=== PATIENT | male | born 1980 | race Caucasian/White ===

== ENCOUNTER 2020-04-16 01:05 | Emergency (ER) | payer BC, SELFPAY ==
--- NOTE | ~2020-04-16 | XR_ITS ---
EXAMINATION: XR chest 1V EXAM DATE: 04/16/2020 01:44 INDICATION: Unresponsive. TECHNIQUE: Portable AP frontal chest x-ray was obtained. There is no prior study for comparison. FINDINGS: The lungs are clear. There are no pleural effusions. The cardiomediastinal silhouette is within normal limits. There is no pneumothorax suspected. The bones and soft tissues are unremarkab le. IMPRESSION: Unremarkable chest x-ray exam. Reviewed, dictated and finalized at location A. ERY SUPERVISOR
--- NOTE | ~2020-04-16 | CT_ITS ---
EXAMINATION: CT brain wo con EXAM DATE: 04/16/2020 01:37 INDICATION: Unresponsiveness. TECHNIQUE: Spiral CT of the head was performed without contrast. Axial, coronal and sagittal images were reviewed. The dose-length product (DLP) for this examination was 605.33 mGy-cm. The exposure w as tailored according to patient size, and iterative reconstruction (ASIR) was used as additional dos e reduction technique. Comparison is made to prior examination from 04/16/2020. FINDINGS: There is no acute intraparenchymal hemorrhage. No evidence of intraparenchymal brain mass lesion. No evidence of acute infarction. There is no mass effect or midline shift. The ventricles are normal in size. There are no extra-axial collections. There are no acute calvarial fractures. T he orbits are unremarkable. Soft tissue is unremarkable. Mild right maxillary sinus periosteal thic kening in the imaged portion of the sinus. IMPRESSION: 1. Unremarkable head CT examination. Reviewed, dictated and finalized at location A. ENT REGISTRATION SUPERVISOR
[2020-04-16 01:08] VITALS: BP 133/92; PULSE 94; RESP 16; TEMP 36.8; O2SAT 96
--- NOTE | 2020-04-16 01:20 | ECG_ITS ---
Measurements Intervals [place] Rate: 81 P: 74 TX: 151 QRS: 51 QRSD: 85 T: 27 QT: 400 QTc: 466 Interpretive Statements SINUS RHYTHM BASELINE ARTIFACT- I, II, III, AVR, AVL, AVF, V1-V2, V4 NORMAL ECG Electronically Signed On 04-16-2020 7:44:09 COMPUTER PERIPHERAL EQUIPMENT OPERATOR by Colby Stinson D.O.
[2020-04-16] MEDS: SODIUM CHLORIDE 0.9% IV 1,000 ML 999 ML IV CONT (01:45)
--- NOTE | 2020-04-16 01:46 | ED.AMS ---
HPI - Altered Mental Status General Chief Complaint: Altered Mental Status Stated Complaint: ams Source: EMS Mode of arrival: EMS History of Present Illness HPI narrative: THis patient is a 39 year old male who presents via EMS for evaluation of unresponsiveness. EMS states the patient's significant other found the patient passed out in the bathroom. They states she was able to get him up of the floor. On EMS arrival, EMS reports patient was breathing but unresponsive to sternal rub. Once they got him into ambulance to start IV and EKG patient started waking up. His significant other told EMS she thinks he may have taken her narcolepsy medication, Xyrem. He admits to drinking 4 bottles of beer tonight, but he denies taking any medication. He denies headache, dizziness, chest pain, nausea, vomiting or sob. Related Data Allergies Allergy/AdvReac Type Severity Reaction Status Date / Time No Known Allergies Allergy Unverified 10/11/18 08:55 Review of Systems Review of Systems: All systems reviewed & are unremarkable except as noted in HPI and below Constitutional: Constitutional: Denies chills and Denies fever(s) Eyes: Eyes: Denies change in vision Cardiovascular: Cardiovascular: Denies chest pain Respiratory: Respiratory: Denies cough and Denies dyspnea Gastrointestinal: Gastrointestinal: Denies melena and Denies coffee ground emesis Neurologic: Reports weakness Endocrine: Endocrine: Reports fatigue PMFSH Past Medical History Medical History (Updated 04/16/20 @ 06:44 by Ama Chamberlain MD) Anemia Surgical History Surgical History (Updated 04/16/20 @ 06:35 by Ama Chamberlain MD) No significant past surgical history Social History Social History (Updated 04/16/20 @ 01:54 by Ama Chamberlain MD) Smoking status: Never smoker Alcohol intake: current Substance use: never Exam Const: General: alert Orientation/consciousness: patient oriented x3 HENMT: Head: normocephalic and other (right forehead bruising) Ears: TM's normal bilaterally Face and sinus: face symmetric Throat: tonsils normal and uvula midline Eyes: Pupils: Equal, round and reactive pupils present EOM: EOMs intact bilaterally Neck: Neck: normal visual inspection Chest: Chest palpation & inspection: normal inspection of the chest Resp: Effort & Inspection: normal respiratory effort and no retractions Auscultation: clear to auscultation bilaterally Cardio: Rate: regular rate Rhythm: regular rhythm Heart sounds: no murmurs GI: GI Palp: Yes Soft to palpation, No Tenderness to palpation present (GI), No Guarding due to palpation present (GI) and No Rigid due to palpation Neuro: General: patient oriented x3 and moves all extremities Psych: Mental Status: mental status grossly normal Course Reevaluation(s) Reevaluation #1: I have discussed with patient that he has severe anemia. He reports a history of anemia due to bleeding hemorrhoids. He reports he has not had bleeding in 1 week and he denies melena. He states he is taking his iron although his hemoglobin was normal 2 months ago at 14.5 but today it is 7. I recommended to patient that he be admitted since he had a syncopal episode with a significant drop in his blood count. He states he does not want to be admitted and his is at bedside. I discussed risk with family at bedside and he still wants to sign out AMA. Date: 04/16/20 Time: 03:00 Vital Signs Vital signs: Vital Signs Temperature 98.2 F 04/16/20 01:08 Pulse Rate 94 04/16/20 01:08 Respiratory Rate 16 04/16/20 01:08 Blood Pressure 133/92 H 04/16/20 01:08 Pulse Oximetry 96 04/16/20 01:08 Temperature 98.1 F 04/16/20 03:35 Pulse Rate 89 04/16/20 03:35 Respiratory Rate 16 04/16/20 03:35 Blood Pressure 128/89 04/16/20 03:35 Pulse Oximetry 100 04/16/20 03:35 MDM - Altered Mental Status Lab Data Attestation: I reviewed the patient's lab results.
[2020-04-16 01:52] LABS: Glucose Point of Care 123 (65-105)
[2020-04-16 02:18] LABS: INR 0.9; Prothrombin Time 12.8 Seconds (11.1-14.7)
[2020-04-16 02:19] LABS: Partial Thromboplastin Time 22.4 SECONDS (22.3-36.8)
[2020-04-16 02:21] LABS: Alanine Aminotransferase 113 U/L (4-50); Albumin Level 4.1 g/dL (3.5-5.1); Alkaline Phosphatase 73 U/L (38-126); Anion Gap 10 mmol/L (8-16); Aspartate Amino Transferase 151 U/L (17-59); Bilirubin,Total 0.3 mg/dL (0.2-1.3); Blood Urea Nitrogen 7 mg/dL (9-20); Calcium 7.9 mg/dL (8.4-10.2); Carbon Dioxide 31 mmol/L (22-30); Chloride 105 mmol/L (98-107); Estimated CRCL calculation 97 ml/min; Estimated Glomerular Filt Rate > 60; Glucose 125 mg/dL (75-110); Magnesium 2.3 mg/dL (1.6-2.3); Potassium 3.8 mmol/L (3.4-5.0); Sodium 146 mmol/L (137-145)
[2020-04-16 02:28] LABS: Acetaminophen < 10 ug/mL (10-30); Salicylate < 1.0 mg/dL (2-20)
[2020-04-16 02:29] LABS: Basophils Absolute Auto 0.1 K/mm3 (0.0-0.1); Eosinophils Percent Auto 0.2 % (0-4.4); Hematocrit 24.2 % (42.0-52.0); Immature Granulocyte Absolute 0.03 K/mm3 (0.00-0.031); Immature Granulocyte Percent A 0.6 % (0-0.5); Lymphocytes Absolute Auto 0.69 K/mm3 (0.9-3.2); Lymphocytes Percent Auto 14.4 % (18.3-44.2); Mean Corpuscular HGB Conc 28.9 g/dl (32-36); Mean Corpuscular Hemoglobin 23.6 pg (26-34); Mean Corpuscular Volume 81.8 fl (80-100); Mean Platelet Volume 8.7 fl (7.4-10.4); Monocytes Absolute Auto 0.4 K/mm3 (0.1-0.6); Monocytes Percent Auto 8.6 % (2.6-8.5); Neutrophils Absolute Auto 3.6 K/mm3 (1.3-6.7); Neutrophils Percent Auto 75.2 % (45.5-73.1); Platelet Count Result 198 k/mm3 (150-375); Red Blood Count 2.96 M/mm3 (4.6-6.20); Red Cell Distribution Width 17.5 % (11.5-14.5); White Blood Count 4.8 K/mm3 (4.5-10.0)
[2020-04-16 02:32] LABS: Troponin I < 0.012 ng/mL (0.000-0.034)
[2020-04-16 02:45] LABS: Ethanol 372 mg/dL (<10)
[2020-04-16 02:46] LABS: Hypochromasia 2+ (NORMAL); Ovalocytes 1+ (NORMAL); Platelet Estimate Adequate (Adequate)
[2020-04-16 03:03] VITALS: BP 131/89; PULSE 105
[2020-04-16 03:04] VITALS: BP 129/86; PULSE 93
[2020-04-16 03:06] VITALS: BP 127/83; PULSE 109
[2020-04-16 03:14] LABS: Add Urine Microscopic? YES; Appearance Urine Cloudy (Clear); Bilirubin Urine Negative (Negative); Blood Urine Negative (Negative); Color Urine Yellow (Yellow); Glucose Urine UA Negative (Negative); Ketones Urine Negative (Negative); Leukocyte Esterase Ur Negative LEU/UL (Negative); Mucus Urine Rare /lpf; Nitrate Urine Negative (Negative); Protein Urine 2+ mg/dL (Negative); RBC Urine 0-2 /hpf (0-2); Specific Grav Ur 1.012 (1.001-1.035); Urobilinogen Urine Negative mg/dL (<2.0); WBC Urine 0-3 /hpf
[2020-04-16 03:26] LABS: Benzodiazepines Screen Urine Negative (Negative)
[2020-04-16 03:32] LABS: Amphetamine Screen Urine Negative (Negative); Cannabinoid Screen Urine Positive (Negative); Cocaine Screen Urine Negative (Negative); Methadone Screen Urine Negative (Negative); Opiate Screen Urine Negative (Negative); Phencyclidine Screen Urine Negative (Negative)
[2020-04-16 03:35] VITALS: BP 128/89; PULSE 89; RESP 16; TEMP 36.7; O2SAT 100
[2020-04-16 03:48] LABS: Barbiturate Screen Urine Negative (Negative)
== END 2020-04-16 03:37 | disposition left against medical advice (07) ==
LOC: ANHED 02:11
PROVIDERS: Emergency Provider General Practice; PCP Student in an Organized Health Care Education/Training Program
DX: R55 Syncope and collapse (principal); F10.129 Alcohol abuse with intoxication, unspecified; Y90.0 Blood alcohol level of less than 20 mg/100 ml; D64.9 Anemia, unspecified
CPT/HCPCS: 36415; 70450; 71045; 80053; 80307; 81001; 83735; 84484; 85025; 85610; 85730; 93005; 96360; 99284; J7030

== ENCOUNTER 2020-05-07 01:18 | Observation (INO) | payer BC, SELFPAY ==
[2020-05-07] VITALS (8 sets, daily range): BP systolic 127–139; BP diastolic 78–92; PULSE 83–140; RESP 16–22; TEMP 36.1–37.1; O2SAT 96–100; BMI 26.1
--- NOTE | ~2020-05-07 | CT_ITS ---
EXAMINATION: CT abdomen pelvis w con EXAM DATE: 05/07/2020 13:18 INDICATION: Nausea and vomiting. TECHNIQUE: Spiral CT of the abdomen and pelvis was performed following intravenous injection of 100 m L Omnipaque 350. Axial, coronal and sagittal images were reviewed. The dose-length product (DLP) fo r this examination was 546.56 mGy-cm. The exposure was tailored according to patient size (auto mA e xposure control), and iterative reconstruction (ASIR) was used as additional dose reduction technique . There is no prior study for comparison. FINDINGS: There is severe hepatic steatosis. There is a hemangioma in the right liver lobe at the dom e measuring 3 cm. Portal vein measures 16 mm, mildly dilated, but spleen is normal in size. Gallblad zheng is unremarkable. No biliary obstruction. Portal and splenic veins are patent. Kidneys enhance symmetrically. There is no hydronephrosis. The prostate is unremarkable. Small left inguinal fat-c ontaining hernia. The bladder is unremarkable. There is no retroperitoneal or pelvic lymphadenopath y. The appendix is normal. The stomach and small bowel are unremarkable. There is expected amount of c olonic stool. No free intraperitoneal gas. The heart is normal in size. There are no pericardial or pleural effusions. The lung bases are unremarkable. There are no significant osseous abnormalit ies identified. IMPRESSION: 1. Hepatic steatosis. Possible portal hypertension. 2. Hemangioma. 3. No acute findings. Reviewed, dictated and finalized at location A. WARE APPLICATIONS SPECIALIST
--- NOTE | ~2020-05-07 | US_ITS ---
EXAMINATION: US right upper quadrant DATE: 05/08/2020 13:46 INDICATION: Hepatic steatosis. TECHNIQUE: Multiple grayscale and Doppler ultrasound images of the abdomen were obtained. COMPARISON: CT abdomen and pelvis 05/07/2020 FINDINGS: The visualized portions of the head, body, and tail of the pancreas are normal. There is di ffuse hepatic steatosis. No liver surface nodularity. There is a 4.1 cm hypoechoic mass in right hepa tic lobe with interrupted peripheral puddling of contrast on the prior CT, consistent with a hemangio ma. There is normal flow in main portal vein. The gallbladder is normal in size. No gallstones or gal lbladder wall thickening. There is no sonographic Blanchard sign. The common duct is normal and measures 3 mm. IMPRESSION: 1. Diffuse hepatic steatosis. 2. 4.1 cm hemangioma in the liver. Reviewed, dictated and finalized at location A. ISHER APPRENTICE
--- NOTE | 2020-05-07 01:24 | ED.GENADULT ---
HPI - General Adult General Chief complaint: Chest Pain <NEAL Balderrama Last Filed: 07/31/20 12:18> Stated complaint: nausea and vomiting <NEAL Balderrama Last Filed: 07/31/20 12:18> Time Seen by Provider: 05/07/20 01:23 <NEAL Balderrama Last Filed: 07/31/20 12:18> Source: patient and family () <Leslie Lakhani PA-C - Last Filed: 07/31/20 12:18> Mode of arrival: ambulatory <NEAL Balderrama Last Filed: 07/31/20 12:18> Limitations: no limitations <NEAL Balderrama Last Filed: 07/31/20 12:18> History of Present Illness HPI narrative: 39-year-old male here for persistent vomiting of non-bilious emesis. Patient states that came on suddenly this morning he has not been able to keep anything down since. There is no one in the home sick. He denies any fever, he is shaking on exam and states that he does feel cold and hot. When questioned about tobacco and alcohol he states that he is a daily alcohol drinker, beer and cider but is trying to cut back. He does not feel that this is related to alcohol withdrawal. He was seen here several weeks ago and diagnosed with anemia, he tells me that that is chronic and he and his state that he is seeing a physician and receiving iron infusions. <NEAL Balderrama Last Filed: 07/31/20 12:18> Onset (ago): hour(s) <NEAL Balderrama Last Filed: 07/31/20 12:18> Related Data Home medications: Home Medications Medication Instructions Recorded Confirmed baclofen 10 mg PO PRN 05/07/20 05/07/20 folic acid 1 mg PO DAILY 05/07/20 05/07/20 sertraline [Zoloft] 25 mg PO DAILY 05/07/20 05/07/20 <NEAL Balderrama Last Filed: 07/31/20 12:18> Allergies/adverse reactions: Allergies Allergy/AdvReac Type Severity Reaction Status Date / Time No Known Allergies Allergy Verified 05/07/20 05:15 <Leslie Lakhani PA-C - Last Filed: 07/31/20 12:18> Review of Systems Review of Systems: All systems reviewed & are unremarkable except as noted in HPI and below <Leslie Lakhani PA-C - Last Filed: 07/31/20 12:18> [facility] Past Medical History Medical History: Medical History (Updated 05/20/20 @ 09:28 by Giovanna José PA-C) Alcohol dependence Anemia Anxiety Back muscle spasm Hemorrhoids <Leslie Lakhani PA-C - Last Filed: 07/31/20 12:18> Surgical History Surgical History: Surgical History No significant past surgical history <Leslie Lakhani PA-C - Last Filed: 07/31/20 12:18> Family History Family History: Family History Mother Renal cancer Father High blood cholesterol Mother High blood cholesterol Sibling High blood cholesterol Father Heart attack <Leslie Lakhani PA-C - Last Filed: 07/31/20 12:18> Social History Social History: Social History (Updated 05/07/20 @ 12:43 by Giovanna José PA-C) Social History: Mr. Rogers is a 39 y.o. male. He has two children and one stepson. He lives at home with his . He works for [employer]. He reports that he is currently drinking 4 beers (ciders) per day. He notes occasional marijuana and CBD use. Smoking status: Never smoker Alcohol intake: current Drinks per week: 35 Substance use: current Substance use type: marijuana Last use: marijuana 05/04/2020, alcohol 05/06/2020 Gender identity (if verbalized by the patient): Male Spiritual care concerns: No <Leslie Lakhani PA-C - Last Filed: 07/31/20 12:18> Exam Const: General: alert and ill appearing <Leslie Lakhani PA-C - Last Filed: 07/31/20 12:18> Orientation/consciousness: patient oriented x3 <Leslie Lakhani PA-C - Last Filed: 07/31/20 12:18> HENMT: Head: normal to inspection <Leslie Lakhani PA-C - Last Filed: 07/31/20 12:18> Eyes: Sclera: scleral abnormality (injection) <
--- NOTE | 2020-05-07 01:25 | ECG_ITS ---
Measurements Intervals [place] Rate: 116 P: 62 [place]: 152 QRS: 58 QRSD: 81 T: 45 QT: 316 QTc: 441 Interpretive Statements SINUS TACHYCARDIA POSSIBLE LEFT ATRIAL ENLARGEMENT BASELINE ARTIFACT- I, II, III, AVR, AVL ABNORMAL ECG Electronically Signed On 05-07-2020 10:31:15 WORKING FOREMAN by Colby Stinson D.O.
[2020-05-07] MEDS: SODIUM CHLORIDE 0.9% IV 1,000 ML 999 ML IV CONT (01:49)
[2020-05-07] MEDS: ONDANSETRON INJ 4 MG/2 ML VIAL IV PUSH (01:50)
[2020-05-07 02:10] LABS: Basophils Absolute Auto 0.1 K/mm3 (0.0-0.1); Basophils Percent Auto 1.9 % (0.2-1.2); Eosinophils Absolute Auto 0.6 K/mm3 (0-0.3); Eosinophils Percent Auto 12.3 % (0-4.4); Hematocrit 36.8 % (42.0-52.0); Hemoglobin 10.9 g/dL (14.0-18.0); Immature Granulocyte Absolute 0.02 K/mm3 (0.00-0.031); Immature Granulocyte Percent A 0.4 % (0-0.5); Lymphocytes Absolute Auto 0.52 K/mm3 (0.9-3.2); Lymphocytes Percent Auto 11.2 % (18.3-44.2); Mean Corpuscular HGB Conc 29.6 g/dl (32-36); Mean Corpuscular Hemoglobin 24.7 pg (26-34); Mean Corpuscular Volume 83.3 fl (80-100); Mean Platelet Volume 9.5 fl (7.4-10.4); Monocytes Absolute Auto 0.3 K/mm3 (0.1-0.6); Monocytes Percent Auto 6.9 % (2.6-8.5); Neutrophils Absolute Auto 3.1 K/mm3 (1.3-6.7); Neutrophils Percent Auto 67.3 % (45.5-73.1); Platelet Count Result 436 k/mm3 (150-375); Red Blood Count 4.42 M/mm3 (4.6-6.20); Red Cell Distribution Width 22.6 % (11.5-14.5); White Blood Count 4.6 K/mm3 (4.5-10.0)
[2020-05-07 02:11] LABS: Alanine Aminotransferase 157 U/L (4-50); Alkaline Phosphatase 128 U/L (38-126); Anion Gap 20 mmol/L (8-16); Aspartate Amino Transferase 317 U/L (17-59); Bilirubin,Total 1.2 mg/dL (0.2-1.3); Blood Urea Nitrogen 7 mg/dL (9-20); Calcium 10.4 mg/dL (8.4-10.2); Carbon Dioxide 22 mmol/L (22-30); Chloride 96 mmol/L (98-107); Estimated Glomerular Filt Rate > 60; Glucose 187 mg/dL (75-110); Lipase 106 U/L (23-300); Potassium 3.9 mmol/L (3.4-5.0); Sodium 138 mmol/L (137-145)
[2020-05-07 02:13] LABS: Ethanol < 10 mg/dL (<10)
[2020-05-07 02:20] LABS: Anisocytosis 2+ (NORMAL); Platelet Estimate Adequate (Adequate)
[2020-05-07 02:21] LABS: Stomatocytes 1+ (NORMAL)
[2020-05-07] MEDS: PROMETHAZINE HCL 25 MG/ML AMPUL 12.5 MG IV PUSH (03:02)
[2020-05-07] MEDS: LACTATED RINGERS 1,000 ML 999 ML IV CONT (03:02)
[2020-05-07] MEDS: SODIUM CHLORIDE 0.9% IV 50 ML 100 ML (03:03)
[2020-05-07] MEDS: LORazepam INJ (*CRX) 2 MG/ML VIAL 1 MG IV PUSH (03:03)
--- NOTE | 2020-05-07 04:00 | ADMGEN ---
This patient, Ron Rogers, was admitted to Medical Room 257-01. Patient/family oriented to hospital policies and general routines including ID bracelet, bed and alarms, visiting hours, pain management, procedures, bathroom and other care routines, personal items, smoking policy, room service/diet, and visiting hours. Information on how to activate the Rapid Response Team has been discussed. Patient/Family are encouraged to report perceived risks to care and to ask questions if they do not understand what they are told or what they should do.
[2020-05-07] MEDS: THIAMINE HCL INJ 100 MG, FOLIC ACID INJ 1 MG, MULTIVITAMINS-12 INJ VIAL 1 5 ML, MULTIVI... 125 MG IV CONT (04:05)
[2020-05-07 06:18] LABS: Glucose Point of Care 131 (65-105)
[2020-05-07 08:45] LABS: Basophils Absolute Auto 0.1 K/mm3 (0.0-0.1); Basophils Percent Auto 1.2 % (0.2-1.2); Eosinophils Percent Auto 0.2 % (0-4.4); Hematocrit 29.9 % (42.0-52.0); Hemoglobin 8.9 g/dL (14.0-18.0); Immature Granulocyte Absolute 0.01 K/mm3 (0.00-0.031); Immature Granulocyte Percent A 0.2 % (0-0.5); Lymphocytes Absolute Auto 1.05 K/mm3 (0.9-3.2); Lymphocytes Percent Auto 21.1 % (18.3-44.2); Mean Corpuscular HGB Conc 29.8 g/dl (32-36); Mean Corpuscular Hemoglobin 24.7 pg (26-34); Mean Corpuscular Volume 83.1 fl (80-100); Mean Platelet Volume 9.2 fl (7.4-10.4); Monocytes Absolute Auto 0.6 K/mm3 (0.1-0.6); Monocytes Percent Auto 12.5 % (2.6-8.5); Neutrophils Absolute Auto 3.2 K/mm3 (1.3-6.7); Neutrophils Percent Auto 64.8 % (45.5-73.1); Platelet Count Result 325 k/mm3 (150-375); Red Cell Distribution Width 22.3 % (11.5-14.5)
[2020-05-07 08:57] LABS: Alanine Aminotransferase 129 U/L (4-50); Albumin Level 3.9 g/dL (3.5-5.1); Alkaline Phosphatase 77 U/L (38-126); Anion Gap 7 mmol/L (8-16); Aspartate Amino Transferase 181 U/L (17-59); Bilirubin,Total 0.8 mg/dL (0.2-1.3); Blood Urea Nitrogen 8 mg/dL (9-20); Carbon Dioxide 30 mmol/L (22-30); Chloride 100 mmol/L (98-107); Estimated CRCL calculation 100 ml/min; Estimated Glomerular Filt Rate > 60; Glucose 121 mg/dL (75-110); Lipase 97 U/L (23-300); Sodium 137 mmol/L (137-145)
[2020-05-07] MEDS: THIAMINE HCL 200 MG/2 ML VIAL 100 MG IV PUSH (09:06)
[2020-05-07] MEDS: SERTRALINE HCL 25 MG TABLET PO (09:07)
[2020-05-07 09:16] LABS: Large Platelets Present; Platelet Estimate Increased (Adequate)
[2020-05-07 09:17] LABS: Ovalocytes 1+ (NORMAL); Stomatocytes 1+ (NORMAL); Tear Drop Cells 1+ (NORMAL)
[2020-05-07] MEDS: chlordiazePOXIDE (*CRX) 10 MG CAPSULE PO ×2 (11:23→17:24)
[2020-05-07 11:30] LABS: Glucose Point of Care 131 (65-105)
[2020-05-07] MEDS: DEXTROSE 5%/0.45% SOD CHL 1,000 ML 125 ML IV CONT ×2 (11:51→19:56)
[2020-05-07 12:06] LABS: Glucose Point of Care 135 (65-105)
--- NOTE | 2020-05-07 12:12 | PM.IMHP ---
H&P: HPI History of Present Illness Date/Time: 05/07/20 12:12 Chief complaint: Intractable N/V, Alcohol Withdrawal, Elev. LFT's Narrative: Ron Rogers is a 39 year old male with PMH significant for iron deficiency anemia, anxiety, alcohol dependence, and back spasms who presented to the emergency department 05/06/20 for the evaluation of intractable nausea and vomiting. He reported onset of vomiting and nausea yesterday morning at 7:00AM after he drank a bottle of water. He reports no significant abdominal discomfort until later in the day when he developed abdominal muscle wall tenderness which he attributed to retching. He denies associated diarrhea. He is not having any melena, hematochezia, or hematemesis. His last drink was Wednesday evening. He notes that he was drinking approximately 10-12 beers per day 3 weeks ago but decreased his drinking to 4 beers per day. He reports that he did have hallucinations and vivid dreams from alcohol withdrawal in the past but reports no prior hx of alcohol withdrawal seizures. He is established with Dr. Cruz for his anemia and receives iron infusions. His last iron infusion was 05/01/20. He has no urinary symptoms. He reports chills yesterday associated with the vomiting but no fevers. He denies sick contacts. He is not having any cough, shortness of breath, or chest pain. He does not complain of any significant abdominal pain at the time of my evaluation. He reports no further nausea or vomiting today although he is NPO. He would like to try to advance his diet as he is feeling better overall. Review of Systems Review of Systems: Narrative: Constitutional: Denies fever, chills, fatigue, and appetite change. Denies sick contacts. Eyes: Denies vision change. No additional eye complaints. ENT: Denies change in hearing, dysphagia, odynophagia, and sore throat. Reports occasional sinus congestion. Cardiovascular: Denies palpitations and chest pain. Denies leg swelling. Respiratory: Denies cough and shortness of breath. Gastrointestinal: As above. Genitourinary: Denies dysuria, frequency, urgency, and hesitancy. Denies hematuria. Denies flank pain. Musculoskeletal: Denies joint pain and swelling. Reports chronic muscle spasms in the back and takes baclofen. Skin: Denies lesions and wounds. Neurologic: Denies focal weakness, paresthesias, confusion, and speech change. Denies headache and dizziness. Psychiatric: Denies mood change. Reports anxiety and notes that he always has a mild tremor. Hematologic: Denies easy bruising and bleeding. Reports chronic iron deficiency anemia and is on iron infusions. All systems reviewed & are unremarkable except as noted in HPI and below PMFSH Past Medical History Medical History (Updated 05/07/20 @ 12:56 by Giovanna José PA-C) Alcohol dependence Anemia Anxiety Back muscle spasm Hemorrhoids Surgical History Surgical History No significant past surgical history Family History Family History Mother Renal cancer Father High blood cholesterol Mother High blood cholesterol Sibling High blood cholesterol Father Heart attack Social History Social History (Updated 05/07/20 @ 12:43 by Giovanna José PA-C) Social History: Mr. Rogers is a 39 y.o. male. He has two children and one stepson. He lives at home with his . He works for [employer]. He reports that he is currently drinking 4 beers (Deepclass) per day. He notes occasional marijuana and CBD use. Smoking status: Never smoker Alcohol intake: current Drinks per week: 35 Substance use: current Substance use type: marijuana Last use: marijuana 05/04/2020, alcohol 05/06/2020 Occupation/Education: occupation Gender identity (if verbalized by the patient): Male Spiritual care concerns: No Meds Home Medications and Allergies Home Medications Med
[2020-05-07 13:57] LABS: Add Urine Microscopic? YES; Appearance Urine Turbid (Clear); Bacteria Urine 3+ /hpf; Bilirubin Urine Negative (Negative); Blood Urine Negative (Negative); Color Urine Amber (Yellow); Glucose Urine UA Negative (Negative); Ketones Urine 1+ mg/dL (Negative); Leukocyte Esterase Ur Negative LEU/UL (Negative); Mucus Urine Heavy /lpf; Nitrate Urine Negative (Negative); Protein Urine 2+ mg/dL (Negative); RBC Urine 0-2 /hpf (0-2); WBC Urine 0-3 /hpf
[2020-05-07 13:59] LABS: Specific Grav Ur 1.042 (1.001-1.035)
[2020-05-07 14:07] LABS: Amphetamine Screen Urine Negative (Negative); Barbiturate Screen Urine Negative (Negative); Benzodiazepines Screen Urine Negative (Negative); Cannabinoid Screen Urine Positive (Negative); Cocaine Screen Urine Negative (Negative); Methadone Screen Urine Negative (Negative); Opiate Screen Urine Negative (Negative); Phencyclidine Screen Urine Negative (Negative)
[2020-05-07 16:41] LABS: Glucose Point of Care 107 (65-105)
[2020-05-07] MEDS: BACLOFEN 10 MG TABLET PO (16:54)
[2020-05-07 18:24] LABS: IFOB Positive Control Positive; Immunochemical Fecal Occult Bl Negative (N)
[2020-05-08] VITALS: BP 129/86
[2020-05-08] MEDS: chlordiazePOXIDE (*CRX) 10 MG CAPSULE PO ×2 (00:41→06:22)
[2020-05-08 01:39] LABS: Glucose Point of Care 151 (65-105)
[2020-05-08] MEDS: DEXTROSE 5%/0.45% SOD CHL 1,000 ML 75 ML IV CONT (04:23)
[2020-05-08 05:37] VITALS: BP 125/79; PULSE 92; RESP 16; TEMP 36.5; O2SAT 97
[2020-05-08 05:45] LABS: Basophils Percent Auto 0.9 % (0.2-1.2); Eosinophils Percent Auto 0.9 % (0-4.4); Immature Granulocyte Absolute 0.01 K/mm3 (0.00-0.031); Immature Granulocyte Percent A 0.2 % (0-0.5); Lymphocytes Absolute Auto 0.98 K/mm3 (0.9-3.2); Lymphocytes Percent Auto 21.5 % (18.3-44.2); Mean Corpuscular Hemoglobin 24.2 pg (26-34); Mean Corpuscular Volume 83.3 fl (80-100); Mean Platelet Volume 9.7 fl (7.4-10.4); Monocytes Absolute Auto 0.5 K/mm3 (0.1-0.6); Monocytes Percent Auto 9.9 % (2.6-8.5); Neutrophils Percent Auto 66.6 % (45.5-73.1); Platelet Count Result 313 k/mm3 (150-375); Red Blood Count 3.72 M/mm3 (4.6-6.20); Red Cell Distribution Width 21.4 % (11.5-14.5); White Blood Count 4.6 K/mm3 (4.5-10.0)
[2020-05-08 05:56] LABS: Alanine Aminotransferase 99 U/L (4-50); Albumin Level 3.9 g/dL (3.5-5.1); Alkaline Phosphatase 73 U/L (38-126); Anion Gap 5 mmol/L (8-16); Aspartate Amino Transferase 136 U/L (17-59); Bilirubin,Total 0.8 mg/dL (0.2-1.3); Blood Urea Nitrogen 5 mg/dL (9-20); Calcium 8.8 mg/dL (8.4-10.2); Carbon Dioxide 31 mmol/L (22-30); Chloride 101 mmol/L (98-107); Creatine Kinase 198 U/L (55-170); Estimated CRCL calculation 111 ml/min; Estimated Glomerular Filt Rate > 60; Glucose 112 mg/dL (75-110); Lipase 131 U/L (23-300); Magnesium 2.3 mg/dL (1.6-2.3); Potassium 3.6 mmol/L (3.4-5.0); Sodium 137 mmol/L (137-145)
[2020-05-08 06:40] LABS: Glucose Point of Care 121 (65-105)
[2020-05-08 06:52] LABS: Hepatitis B Surface Antigen Negative (Negative)
[2020-05-08 06:58] LABS: HAV RESULT Negative (Negative); Hepatitis B Core IgM Result Negative (Negative)
[2020-05-08 07:10] LABS: Hepatitis C Virus Antibody Negative (Negative)
[2020-05-08 07:54] LABS: Hypochromasia 2+ (NORMAL); Platelet Estimate Adequate (Adequate)
[2020-05-08] MEDS: FOLIC ACID 1 MG TABLET PO (09:17)
[2020-05-08] MEDS: THIAMINE HCL 200 MG/2 ML VIAL 100 MG IV PUSH (09:17)
[2020-05-08] MEDS: SERTRALINE HCL 25 MG TABLET PO (09:17)
[2020-05-08] MEDS: BACLOFEN 10 MG TABLET PO (09:17)
[2020-05-08] MEDS: chlordiazePOXIDE (*CRX) 5 MG CAPSULE PO (11:51)
[2020-05-08 12:21] LABS: Glucose Point of Care 126 (65-105)
[2020-05-08 14:00] VITALS: BP 129/90; PULSE 95; RESP 16; TEMP 37.1; O2SAT 99
--- NOTE | 2020-05-08 16:06 | PM.DS ---
DS: Admitting Diagnosis Admitting Diagnosis Admitting Diagnosis: Intractable N/V, Alcohol Withdrawal, Elev. LFT's DS: Discharge Diagnosis Discharge Diagnosis (1) Intractable nausea and vomiting: Code(s): R11.2 - Nausea with vomiting, unspecified Status: Resolved Assessment and Plan: Discharge Summary (Date of service 05/08/20): Mr. Rogers is a 39 y.o. male with PMH significant for iron deficiency anemia, anxiety, alcohol dependence, and back spasms who presented to the emergency department 05/06/20 for the evaluation of intractable nausea and vomiting. He did endorse chronic alcoholism and drank the night prior to symptom development. CT abd/pelvis was performed and demonstrated hepatic steatosis and hemangioma (4.1cm) without any acute findings. Hepatitis panel was negative. His symptoms were possibly secondary to alcohol withdrawal vs gastroenteritis. Lipase was normal. He did not have any significant associated abdominal pain. He was treated with supportive care and his symptoms resolved. He was tolerating a regular diet. He was monitored with CIWA protocol and given tapered librium given hx of alcohol dependence. Alcohol cessation was encouraged and he plans to start outpatient alcohol rehab. He was discharged in hemodynamically stable condition on the afternoon of 05/08/20. (2) Alcohol withdrawal: Qualifiers: Complication of substance-induced condition: with unspecified complication Qualified Code(s): F10.239 - Alcohol dependence with withdrawal, unspecified Code(s): F10.239 - Alcohol dependence with withdrawal, unspecified Status: Resolved Assessment and Plan: He reports hx of hallucinations associated with alcohol withdrawal in the past when he was drinking heavy amounts of hard liquor but was not having any similar symptoms at this time. He was given librium and monitored with CIWA protocol. Librium was weaned. CIWA remained <8. He was encouraged to cut back and ideally stop drinking. I discussed adverse outcomes of drinking including cirrhosis, liver failure, adverse cardiovascular outcomes, and cancer. (3) Anemia: Code(s): D64.9 - Anemia, unspecified Status: Chronic Assessment and Plan: He reports chronic iron deficiency. He had an EGD and colonoscopy 04/2019. EGD was unremarkable and colonoscopy demonstrated hemorrhoids. He also had capsule endoscopy 10/2019 which was negative. He follows with Dr. Cruz and his last iron infusion was 05/01/20. Hb has improved from labs 04/16. He has no evidence of acute blood loss. Guaiac stool testing was negative. (4) Anxiety: Code(s): F41.9 - Anxiety disorder, unspecified Status: Chronic Assessment and Plan: Prior to admission sertraline was continued. (5) Back muscle spasm: Code(s): M62.830 - Muscle spasm of back Status: Chronic Assessment and Plan: Prior to admission baclofen was continued. (6) Alcohol dependence: Code(s): F10.20 - Alcohol dependence, uncomplicated Status: Acute Assessment and Plan: I have encouraged the patient to work towards alcohol cessation. He is following with his PCP outpatient and has discussed doing an outpatient detox program and pharmacotherapy. He is aware of available services to aid in cessation. He is encouraged to quit and seems motivated. (7) Transaminitis: Code(s): R74.01 - Elevation of levels of liver transaminase levels Status: Acute Assessment and Plan: Likely secondary to alcohol use. Hepatitis panel was negative. CT abd/pelvis showed hepatic steatosis and hemangioma. RUQ US was performed to evaluate further and showed normal portal flow, hepatic steatosis, and 4.1cm hemangioma. (8) Hemangioma: Code(s): D18.00 - Hemangioma unspecified site Status: Acute Assessment and Plan: 4.1 cm hemangioma was visualized on RUQ US/CT abd/pelvis. Recommend
== END 2020-05-08 18:06 | disposition home or self-care (01) ==
LOC: ANHED 03:05 → ANH2MED 03:29
PROVIDERS: Physician Assistant; Admitting Provider Internal Medicine; Emergency Provider Emergency Medicine; PCP Student in an Organized Health Care Education/Training Program; Visit Provider Family Medicine
DX: R11.2 Nausea with vomiting, unspecified (principal); F10.239 Alcohol dependence with withdrawal, unspecified; D64.9 Anemia, unspecified; F41.9 Anxiety disorder, unspecified; M62.830 Muscle spasm of back; F10.20 Alcohol dependence, uncomplicated; R74.01 Elevation of levels of liver transaminase levels; R07.9 Chest pain, unspecified; R94.31 Abnormal electrocardiogram [ECG] [EKG]; F12.90 Cannabis use, unspecified, uncomplicated; K76.0 Fatty (change of) liver, not elsewhere classified; D18.09 Hemangioma of other sites
CPT/HCPCS: 36415; 74177; 76705; 80053; 80074; 80307; 81001; 82274; 82550; 83690; 83735; 84443; 85025; 93005; 96361; 96365; 96366; 96375; 99285; A9270; G0378; J2060; J2405; J2550; J3411; J3475; J7030; J7120; J7121; Q9967

== ENCOUNTER 2020-09-30 14:42 | Outpatient (CLI) | payer BC, SELFPAY ==
--- NOTE | ~2020-09-30 | MR_ITS ---
EXAMINATION: MR abdomen wo/w con DATE: 09/30/2020 15:50 INDICATION: Liver hemangioma. Iron deficiency anemia. TECHNIQUE: Magnetic resonance imaging (MRI) of the abdomen was performed without and with 17 mm Multi Alex intravenous contrast. Sequences included coronal T2-weighted FS FSE, coronal and axial FS FIEST A, axial T2-weighted FSE, coronal LAVA-flex, axial STIR FSE, axial DWI, axial dual-echo T1-weighted F SPGR, and axial LAVA. Postcontrast sequences included coronal LAVA-flex and a time course of axial LA VA. COMPARISON: Ultrasound 05/08/2020, CT abdomen and pelvis 05/07/2020 FINDINGS: There is a 3.4 cm hyperenhancing mass in segment VIII of the liver. No washout. There is lo w signal in the liver and spleen on in-phase imaging, consistent with iron overload. The gallbladder is normal in size. There is cystic wall thickening of the gallbladder fundus, consistent with adenomy omatosis. The pancreas, adrenal glands, and right kidney are normal. There is a 9 mm cyst in left kid jaz. There are no dilated loops of bowel. There are no pathologically enlarged lymph nodes. There is no free intraperitoneal fluid. IMPRESSION: 1. Stable 3.4 cm liver mass, consistent with a hemangioma. 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 Reviewed, dictated and finalized at location A.
[2020-09-30 15:15] LABS: Estimated Glomerular Filt Rate > 60
== END 2020-09-30 14:43 | disposition home or self-care (01) ==
PROVIDERS: PCP Student in an Organized Health Care Education/Training Program; Visit Provider Internal Medicine Medical Oncology
DX: D50.0 Iron deficiency anemia secondary to blood loss (chronic) (principal); R16.0 Hepatomegaly, not elsewhere classified
CPT/HCPCS: 74183; A9577

== ENCOUNTER 2021-04-03 10:00 | Outpatient (CLI) | payer BC, SELFPAY ==
--- NOTE | ~2021-04-03 | US_ITS ---
EXAMINATION: US venous doppler LE RT EXAM DATE: 04/03/2021 11:08 INDICATION: Right leg swelling. TECHNIQUE: Multiple grayscale, color flow and Doppler images of the right lower extremity deep venous system were obtained and reviewed. Comparison is made to prior examination from 04/28/2019. FINDINGS: The right common femoral, femoral and profunda veins demonstrate normal color flow, respira tory variation, augmentation and compressibility. Compressibility, color flow confirmed within the r ight popliteal, posterior tibial, peroneal, and greater saphenous veins. Interval recanalization of t he peroneal and soleus veins. IMPRESSION: 1. No right lower extremity deep venous thrombosis. Reviewed, dictated and finalized at location B.
== END 2021-04-03 10:01 | disposition home or self-care (01) ==
LOC: ANHIMG 10:07
PROVIDERS: PCP Student in an Organized Health Care Education/Training Program; Visit Provider Student in an Organized Health Care Education/Training Program
DX: M79.89 Other specified soft tissue disorders (principal)
CPT/HCPCS: 93971

== ENCOUNTER 2025-03-22 10:15 | Emergency (ER) | payer OTHER, SELFPAY ==
[2025-03-22] VITALS (15 sets, daily range): BP systolic 120–140; BP diastolic 63–99; PULSE 78–116; RESP 14–25; TEMP 36.9; O2SAT 92–100
--- NOTE | ~2025-03-22 | CT_ITS ---
CT abdomen pelvis w con Clinical History: Epigastric abdominal pain . Comparison: CT 05/07/2020 Ultrasound 05/08/2020 MRI abdomen 09/10/2020 Technique: Axial images lung bases to symphysis pubis IV contrast information not listed in PACS Coronal, sagittal reformats CT images acquired with automatic exposure control for dose reduction DLP: 461 mGy-cm Findings: Lung bases: Clear. Visualized heart and pericardium: Unremarkable. Liver: Steatosis. Segment 8 hemangioma. Enlarged Gallbladder: Unremarkable. Spleen: Unremarkable. Pancreas: Unremarkable. Adrenal glands: Unremarkable. Kidneys: Right kidney- No hydronephrosis. No renal stones. Left kidney- No hydronephrosis. No renal stones. A few small cysts Distal esophagus/stomach: Unremarkable. Small bowel loops: Normal caliber and wall thickness. Mild wall thickening of duodenal bulb but under distended. Colon: Normal caliber and wall thickness. Normal RLQ appendix. Nodes: No enlarged nodes. Peritoneum: No ascites. No free air. Urinary bladder: Mild wall thickening but under distended. Prostate: Unremarkable. Bones: No acute bony abnormality. Soft tissues: Unremarkable. Aorta: No aneurysm or dissection. IVC: Unremarkable. Main portal vein/SMV/splenic vein: Patent. IMPRESSION: 1. Mild focal duodenitis possible but not suspected. 2. No other acute findings. Reviewed, dictated and finalized at location R.
--- NOTE | ~2025-03-22 | CT_ITS ---
EXAMINATION: CT brain wo con COMPARISON: None HISTORY: Altered mental status TECHNIQUE: Axial images were obtained through the brain without IV contrast. CT scan performed using dose optimization techniques including the following automated exposure control; adjustment of mA and/or kV; use of iterative reconstruction technique. Automatic exposure control was used to reduce radiation dose. Permanent radiation dose record is archived to PACS. FINDINGS: No acute infarct or parenchymal hemorrhage. No abnormal mass or mass effect. No midline shift. No extra-axial fluid collections. No hydrocephalus. . Mastoid air cells unremarkable. Sinuses and orbits unremarkable. No acute fracture. No significant facial or scalp soft tissue swelling evident. No radiopaque foreign body is seen. Impression: 1.No acute intracranial abnormality. Reviewed, dictated and finalized at location P. Impression: 1.No acute intracranial abnormality.
--- NOTE | ~2025-03-22 | XR_ITS ---
EXAMINATION: XR chest 2V, 03/22/2025 12:50 CDT HISTORY: Altered mental status; CP SINCE YESTERDAY COMPARISON: No comparisons available. Technique: 2 views obtained. Findings: The lungs are clear, no effusion. No pneumothorax. Heart is normal size. Mediastinal and hilar contours are within normal limits. Bony thorax no acute abnormality. Impression: No acute cardiopulmonary abnormality. Reviewed, dictated and finalized at location P. Impression: No acute cardiopulmonary abnormality.
--- OUTSIDE RECORDS SUMMARY | 2025-03-22 11:46 | XMS_ITS | Encounter Summary ---
Author Organization [facility] Address [address] [place] [address] Phone Care Team Providers Care Research Geologist Name Role Phone Anup Cardona Rand ROSENBERG Primary Care Provider + Encounter Details Date Type Department Care Team (Late st Contact Info) Description 10/29/2020 Telephone [facility] [address] [place] [address] Jonah Cruz DO [address] [place] [address] Social History Tobacco Use Types Packs/Day Years Used Date Smoking Tobacco: Never Smokeless Tobacco: Never Alcohol Use Standard Drinks/Week Comments Yes 4 (1 standard drink = 0.6 oz pur e alcohol) PHQ-2 Answer Date Recorded Total Score - Questions 1-9 0 10/05 Sex and Gender Information Value Date Recorded Sex Assigned at Not on file 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 No / Unsure 10/21/2020 1:19 PM CDT documented as of this encounter Miscellaneous Notes * Telephone Encounter - Jonah Cruz DO - 10/29/2020 4:38 PM CDT Yes and please let me know who he will be seeing, I would like to speak with them * Telephone Encounter - Velma Scales - 10/29/2020 2:[address] Cruz, On this patient for the Hepatology referral did you still want him to get seen up at [facility]? The referral on the same day that you put in so I wanted to make sure that he still needed to go up there. I have to resend the paperwork to [facility] hepatology and saw that the referral was . Please advise. documented in this encounter Plan of Treatment Not on file documented as of this encounter Visit Diagnoses Not on filedocumented in this encounter Additional Health Concerns Assessment Noted Time PHQ-9 Depression Total Score: 0 10/22/19 21 1:28 PM CDT documented as of this encounter Care Teams Research Geologist Relationship Specialty Start Date End Date Anup Cardona DO [address] [place] [id number] PCP - General Family Medicine 05/24/19 documented as of this encounter
--- OUTSIDE RECORDS SUMMARY | 2025-03-22 11:46 | XMS_ITS | Clinical Summary ---
Author Organization [facility] Address [address] [place] [address] Care Team Providers Care Travel Cota Name Role Phone Luis Carlos Easton MD Primary Care Provider [phone] Allergies No known active allergies Medications baclofen (LIORESAL) 10 mg tablet 0 Active omeprazole (PriLOSEC) 20 mg Capsule, Delayed Release(E.C.) 0 Active ondansetron (ZOFRAN ODT) 4 mg Tablet, Rapid Dissolve 0 Active sertraline (ZOLOFT) 50 mg tablet Take 50 mg by mouth. 1 Active niacin (NIACOR) 250 mg tablet Take 250 mg by mouth. Active thiamine (VITAMIN B-1) 100 mg tablet Take 100 mg by mouth. 1 Active hydrOXYzine HCL (ATARAX) 25 mg tablet 1 Active ferrous gluconate 324 mg (38 mg iron) tablet Take 324 mg by mouth. 1 Active hydrocortisone acetate (ANUSOL-HC) 25 mg Suppository INSERT 1 SUPPOSITORY BY RECTUM AT BEDTIME FOR 14 DAYS 1 Active ascorbic acid, vitamin C, (VITAMIN C) 500 mg tablet Take 500 mg by mouth. Active azelastine (ASTELIN) 137 mcg/actuation nasal spray Administer 1-2 Sprays in each nostril every 12 hours as needed. 9 Active cetirizine (ZyrTEC) 10 mg tablet Take 10 mg by mouth. Active naltrexone (DEPADE) 50 mg tabletIndication s:Alcohol abuse Take 1 Tablet (50 mg) by mouth daily. 90 Tablet 3 1 Active busPIRone (BUSPAR) 10 mg tabletIndication s:ANAM (generalized anxiety disorder) Take 1 Tablet (10 mg) by mouth 3 times daily. 270 Tablet 3 Active Active Problems Problem Noted Date Diagnosed Date Elevated LFTs 08/08/2020 Liver mass 08/08/2020 Overview (08/08/2020): CT abdomen 07/28: IMPRESSION: 1. No acute surgical abnormality. Scattered loops of fluid-filled small bowel possibly associated with inflammatory or infectious enteritis. 2. Advanced fatty infiltrative changes throughout the liver, mild hepatomegaly and 3.3 cm mass which demonstrates enhancement characteristics suggestive of benign hemangioma. However, this is not a dedicated liver study and either dynamic phase liver CT or abdominal MRI is recommended for further evaluation of this mass. Alcohol dependence in remission 08/02/2020 Family History Medical History Relation Name Comments High Cholesterol Brother Hypertension Brother Heart Disease Father High Cholesterol Father Hypertension Father Other Father Breast Cancer Mother Cancer Mother Hypertension Mother Melanoma Mother Relation Name Status Comments Brother Father Mother Social History Tobacco Use Types Packs/Day Years Used Date Smoking Tobacco: Never Smokeless Tobacco: Current Snuff Alcohol Use Standard Drinks/Week Comments Not Currently 0 (1 standard drink = 0.6 oz pur e alcohol) Sex and Gender Information Value Date Recorded Sex Assigned at Not on file 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 Gender Identity Not on file Sexual Orientation Not on file Last Filed Vital Signs Vital Sign Reading Time Taken Comments Blood Pressure - - Pulse - - Temperature - - Respiratory Rate - - Oxygen Saturation - - Inhaled Oxygen Concentration - - Weight 86.2 kg (190 lb) 09/05/2020 10:32 AM CDT Height 177.8 cm (5' 10) 09/05/2020 10:32 AM CDT Body Mass Index 27.26 09/05/2020 10:32 AM CDT Plan of Treatment Health Maintenance Due Date Last Done Comments DTAP/TDAP/TD VACCINES (1 - Tdap) 1999 HEPATITIS B VACCINES (1 of 3 - 19+ 3-dose series) 02/1999 HPV VACCINES (1 - 3-dose SCDM series) 2007 Preventative Visit- Commercial 06/07/2024 INFLUENZA VACCINE (#1) 2025 Insurance [facility] BLUE ACCESS/TRUE BLUE PPO Care Teams Travel Cota Relationship Specialty [place] [address] [id number] PCP - General Family Practice 12/05/20
--- OUTSIDE RECORDS SUMMARY | 2025-03-22 11:47 | XMS_ITS | Clinical Summary ---
Author Organization [facility] Address [address] [place] [address] Phone Care Team Providers Care Recreation Attendant Name Role Phone Anup Cardona Primary Care Provider + Allergies No known active allergies Medications ferrous sulfate 325 (65 Fe) MG Tablet Take 325 mg by mouth. Active folic acid (FOLVITE) 1 MG TabletIndication s:Iron deficiency anemia due to chronic blood loss Take 1 Tab by mouth daily. 30 Tab 06/14/2019 Active baclofen (LIORESAL) 10 MG Tablet 04/05/2020 Active busPIRone (BUSPAR) 10 MG Tablet TAKE 1 TABLET (10 MG) BY MOUTH 3 TIMES DAILY. 09/05/2020 Active hydrOXYzine (ATARAX) 25 MG Tablet 08/07/2020 Active naltrexone (DEPADE) 50 MG Tablet TAKE 1 TABLET (50 MG) BY MOUTH DAILY. 09/05/2020 Active niacin 250 MG Tablet Take 250 mg by mouth. Active thiamine (VITAMIN B1) 100 MG Tablet Take 100 mg by mouth. 08/02/2020 Active ibuprofen (MOTRIN) 800 MG Tablet Take 800 mg by mouth. 10/09/2020 Active sertraline (ZOLOFT) 50 MG Tablet TAKE 1 TABLET (50 MG TOTAL) BY MOUTH DAILY. 10/24/2020 Active Active Problems Problem Noted Date Diagnosed Date Iron deficiency anemia due to chronic blood loss 06/12/2019 Immunizations Immunization Administration Dates Next Due Anthrax Vaccine 10/21/2012 Influenza Virus Vaccine, Whole Virus 05/23/2013 Novel [id number], Injectable 06/20/2009 Pneumococcal PCV, Unspecified Formulation 2020 Smallpox Vaccine 12/25/2005 Typhoid, ViCPs 01/13/2007 Yellow Fever Vaccine 03/23/2008 Family History Medical History Relation Name Comments High Cholesterol Brother Hypertension Brother Congestive Heart Failure Father Heart Attack Father High Cholesterol Father Hypertension Father Cancer Maternal Grandfather Rheumatoid Arthritis Maternal Grandfather Cancer Mother High Cholesterol Mother Hypertension Mother Relation Name Status Comments Brother Father Maternal Grandfather Mother Social History Tobacco Use Types Packs/Day Years Used Date Smoking Tobacco: Never Smokeless Tobacco: Never Alcohol Use Standard Drinks/Week Comments Yes 4 (1 standard drink = 0.6 oz pur e alcohol) PHQ-2 Answer Date Recorded Total Score - Questions 1-9 0 11/06 Sex and Gender Information Value Date Recorded Sex Assigned at Not on file 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 Gender Identity Not on file Sexual Orientation Not on file Last Filed Vital Signs Vital Sign Reading Time Taken Comments Blood Pressure 144/86 12/02/2020 1:03 PM CDT Pulse 105 12/02/2020 1:03 PM CDT Temperature 36.1 C (97 F) 12/02/2020 1:03 PM CDT Respiratory Rate 18 12/02/2020 1:03 PM CDT Oxygen Saturation 97% 12/02/2020 1:03 PM CDT Inhaled Oxygen Concentration - - Weight 91.2 kg (201 lb 1.6 oz) 12/02/2020 1:03 P M CDT Height 177.8 cm (5' 10) 12/02/2020 1:03 PM CDT Body Mass Index 28.85 12/02/2020 1:03 PM CDT Plan of Treatment Health Maintenance Due Date Last Done Comments TdaP Immunization 1980 Hepatitis B Immunization (1 of 3 - 19+ 3-dose series) 1999 Human Papillomavirus (HPV) Immunization (1 - 3-dose SCDM series) 2007 Influenza Immunization (#1) 2025 SARS-COV-2 Immunization ( - season) 2025 Respiratory Syncytial Virus (RSV) Immunization (Adult) (1 - 1-dose 75+ series) 2055 Hepatitis C Virus (HCV) Screening Completed 019 Pneumococcal Immunization Combined Aged Out 2020 No longer eligible based on patient's age to complete this topic Meningococcal Immunization (ACWY) Aged Out No longer eligible based on patient's age to complete this topic Rotavirus Immunization Aged Out No lo nger eligible based on patient's age to complete this topic Insurance [facility] Care Teams Recreation Attendant Relationship Specialty Start Date End Date Anup Cardona DO [facility] [place], [place] [id number] PCP - General Family Medicine 05/24/19
--- OUTSIDE RECORDS SUMMARY | 2025-03-22 11:47 | XMS_ITS | Encounter Summary ---
Author Organization [facility] Address [address] [place] [address] Phone Care Team Providers Care Maintenance Worker Name Role Phone HussainxuanradhaLarissa verduzcochary Rand ROSENBERG Primary Care Provider + Encounter Details Date Type Department Care Team (Late st Contact Info) Description 06/14/2020 Telephone [facility] [address] [place] [address] Jonah Cruz DO [address] [place] [address] Social History Tobacco Use Types Packs/Day Years Used Date Smoking Tobacco: Never Smokeless Tobacco: Never Alcohol Use Standard Drinks/Week Comments Yes 4 (1 standard drink = 0.6 oz pur e alcohol) PHQ-2 Answer Date Recorded Total Score - Questions 1-9 0 12/2019 Sex and Gender Information Value Date Recorded Sex Assigned at Not on file 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 ATRIC TECHNICIAN documented in this encounter Plan of Treatment Not on file documented as of this encounter Visit Diagnoses Not on filedocumented in this encounter Additional Health Concerns Assessment Noted Time PHQ-9 Depression Total Score: 0 05/13/20 20 3:10 PM PODIATRIC TECHNICIAN documented as of this encounter Care Teams Maintenance Worker Relationship Specialty Start Date End Date Anup Cardona DO [address] [place] [id number] PCP - General Family Medicine 05/24/19 documented as of this encounter
--- OUTSIDE RECORDS SUMMARY | 2025-03-22 11:47 | XMS_ITS | Patient Health Record ---
Author Organization [facility] Address [address] [place] [address] Care Team Providers Care Newscast Producer Name Role Phone Ilene Adkins Unavailable [phone] Reason For Referral No Information Medications Medication SIG (Take, Route, Frequency, Duration) Notes Start Date End Date Status hydrOXYzine HCl 25 MG Tablet Oral Active Naltrexone HCl 50 MG Tablet Oral Active ID Now COVID-19 Kit In Vitro *Reorder [facility] for eRx and Interaction Alerts* Active Amoxicillin 875 MG Tablet Oral Active Sertraline HCl 50 MG Tablet Oral Active Sertraline HCl 25 MG Tablet Oral Active Azelastine HCl 137 MCG/SPRAY Solution Nasal Active busPIRone HCl 10 MG Tablet Oral Active Ibuprofen 800 MG Tablet Oral Active predniSONE 20 MG Tablet Oral Active traMADol HCl 50 MG Tablet Oral Active Baclofen 10 MG Tablet Oral Active Famotidine 40 MG Tablet Oral Active Fluticasone Propionate Diskus 50 MCG/ACT Aerosol Powder Breath Activated Inhalation *Reorder from [facility] for eRx and Interaction Alerts* Active Ondansetron 4 MG Tablet Disintegrating Oral Active Omeprazole 20 MG Capsule Delayed Release Oral Active PEG-3350 AND ELECTROLYTES 236-22.74-6.74 -5.86 gram Solution Reconstituted Oral *Reorder from [employer] for eRx and Interaction Alerts* Active Hydrocortisone Acetate 25 MG Suppository Rectal Active Social History Social History Additional Details Category Social Info Options Details Migrated Social History Migrated Social History Tobacco Years: Never smoker 02/24/2021 Plan Of Treatment No Information Insurance Providers Payer Name Payer Address Payer Phone Subscriber Number Group Number Insured Name Patient Relationship to Insured Coverage Start Date Coverage End Date [facility] [address] [place] [address] [id number] CRISTINA DHILLON Self - patient is the insured
--- OUTSIDE RECORDS SUMMARY | 2025-03-22 11:47 | XMS_ITS | Encounter Summary ---
Author Organization [facility] Address [address] [place] [address] Phone Care Team Providers Care Ecd Name Role Phone HussainxuanradhaLarissa verduzcochamaksim Gordillo DO Primary Care Provider + Encounter Details Date Type Department Care Team (Late st Contact Info) Description 05/13/2021 Telephone [facility] [address] [place] [address] Jonah Cruz DO [address] [place] [address] Social History Tobacco Use Types Packs/Day Years Used Date Smoking Tobacco: Never Smokeless Tobacco: Never Alcohol Use Standard Drinks/Week Comments Yes 4 (1 standard drink = 0.6 oz pur e alcohol) PHQ-2 Answer Date Recorded Total Score - Questions 1-9 0 11/06 Sex and Gender Information Value Date Recorded Sex Assigned at Not on file 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 Gender Identity Not on file Sexual Orientation Not on file documented as of this encounter Miscellaneous Notes * Telephone Encounter - Maisah Jeff - 05/13/2021 2:21 PM CST PT HAD OFFICE VIST TODAY, CALLED PT, LEFT MESSAGE ABOUT MISSING APPT, LETTER SENT ACING MACHINE OPERATOR documented in this encounter Plan of Treatment Not on file documented as of this encounter Visit Diagnoses Not on filedocumented in this encounter Additional Health Concerns Assessment Noted Time PHQ-9 Depression Total Score: 0 12/03/19 21 1:06 PM CDT documented as of this encounter Care Teams Ecd Relationship Specialty Start Date End Date Anup Cardona DO [address] [place] [address] PCP - General Family Medicine 05/24/19 documented as of this encounter
--- OUTSIDE RECORDS SUMMARY | 2025-03-22 11:47 | XMS_ITS | Clinical Summary ---
Author Organization [facility] Address [address] [place] [phone] Phone Care Team Providers Care Hospital Chief Financial Officer Name Role Phone Daria Dee MD Primary Care Provider [phone] Allergies No known active allergies Medications thiamine (VITAMIN B1) 100 mg tablet Take 1 tablet (100 mg total) by mouth 08/02/2020 Active sertraline (ZOLOFT) 50 mg tablet Take 1 tablet (50 mg total) by mouth daily 08/07/2020 Active omeprazole (PriLOSEC) 20 mg capsule 05/23/2020 Active niacin 250 mg tablet Take 1 tablet (250 mg total) by mouth daily Active naltrexone (DEPADE) 50 mg tablet TAKE 1 TABLET (50 MG) BY MOUTH DAILY. 09/05/2020 Active ibuprofen (ADVIL,MOTRIN) 800 mg tablet Take 1 tablet (800 mg total) by mouth every 6 (six) hours as needed 10/09/2020 Active hydrOXYzine (ATARAX) 25 mg tablet Take 1 tablet (25 mg total) by mouth 3 (three) times a day as needed 08/07/2020 Active folic acid (FOLVITE) 1 mg tablet Take 1 tablet (1 mg total) by mouth daily 06/14/2019 Active fluticasone propionate (FLONASE) 50 mcg/actuation nasal spray SPRAY 1 SPRAY IN EACH NOSTRIL ONCE A DAY 02/03/2018 Active ferrous sulfate 325 mg (65 mg of elemental iron) tablet Take 1 tablet (325 mg total) by mouth Active famotidine (PEPCID) 40 mg tablet Take 1 tablet (40 mg total) by mouth nightly 01/30/2021 Active cetirizine (ZyrTEC) 10 mg tablet Take 1 tablet (10 mg total) by mouth daily Active busPIRone (BUSPAR) 10 mg tablet Take 1 tablet (10 mg total) by mouth 3 (three) times a day 09/05/2020 Active baclofen (LIORESAL) 10 mg tablet Take 1 tablet (10 mg total) by mouth 2 (two) times a day 04/05/2020 Active azelastine (ASTELIN) 137 mcg (0.1 %) nasal spray SPRAY 2 SPRAYS IN EACH NOSTRIL TWO TIMES A DAY 03/09/2019 Active ascorbic acid 500 mg tablet,chewable Take 1 tablet/chew tab (500 mg total) by mouth daily Active Active Problems No known active problems Social History Tobacco Use Types Packs/Day Years Used Date Smoking Tobacco: Never Assessed Sex and Gender Information Value Date Recorded Sex Assigned at Not on file Legal Sex Male 2:50 PM CDT Gender Identity Not on file Sexual Orientation Not on file Obstetrics History Last Filed Vital Signs Vital Sign Reading Time Taken Comments Blood Pressure 120/77 02/01/2024 4:03 PM CDT Pulse 95 02/01/2024 4:03 PM CDT Temperature 37.1 C (98.8 F) 02/01/2024 4:03 PM CDT Respiratory Rate 20 02/01/2024 4:03 PM CDT Oxygen Saturation 99% 02/01/2024 4:03 PM CDT Inhaled Oxygen Concentration - - Weight 89.5 kg (197 lb 6.4 oz) 02/01/2024 4:03 P M CDT Height 177.8 cm (5' 10) 02/01/2024 4:03 PM CDT Body Mass Index 28.32 02/01/2024 4:03 PM CDT Plan of Treatment Health Maintenance Due Date Last Done Comments Depression Screening 1980 Hepatitis C Screening 1980 Varicella Vaccines (1 of 2 - 13+ 2-dose series) 1993 Regular Well Visit/Exam 18-64 1998 HPV Vaccines (1 - 3-dose SCD M series) 2007 Influenza Vaccine (#1) 2025 , 03/07/2017, 03/07/2016, Additional history exists Pneumococcal vaccine <65 (3 of 3 - PCV20 or PCV21) 2030 08/05/2020, 02/22/2008 DTaP/Tdap/Td Vaccine (6 - Td or Tdap) 08/05/2030 08/05/2020, 08/05/2020, 10/05/2012, Additional history exists Hepatitis B Screening Completed 08/01/2004 Care Teams Hospital Chief Financial Officer Relationship Specialty Start Date End Date Daria Dee MD [address] [place] [address] PCP - General 12/23/21
--- NOTE | 2025-03-22 12:00 | ECG_ITS ---
Test Date: 2025-03-22 12:18:25 Measurements Intervals [place] Rate: 83 P: 53 SC: 173 QRS: 61 QRSD: 84 T: 54 QT: 367 QTc: 433 Interpretive Statements SINUS RHYTHM NORMAL ECG No previous ECG available for comparison Electronically Signed On 03-22-2025 12:58:49 CDT by Colby Stinson D.O.
[2025-03-22] MEDS: THIAMINE HCL 200 MG/2 ML VIAL 100 MG IV PUSH (12:24)
[2025-03-22] MEDS: SODIUM CHLORIDE 0.9% IV 1,000 ML 999 ML IV CONT ×2 (12:24→14:36)
[2025-03-22 12:42] LABS: Acetaminophen < 10 ug/mL (10-30); Ammonia < 9 umol/L (9-30); Salicylate < 1.0 mg/dL (2-20)
--- NOTE | 2025-03-22 12:49 | ED.AMS ---
HPI - Altered Mental Status General Chief Complaint: Altered Mental Status Stated Complaint: AMS Time Seen by Provider: 03/22/25 11:30 Source: patient Mode of arrival: ambulatory Limitations: no limitations History of Present Illness HPI narrative: This is a 44-year-old male with history of alcohol dependence, brought in by POV by family for worsening confusion. The patient's stepson at bedside states over the past 3 days, the patient has appeared more confused than usual, unsteady on his feet with intermittent vomiting. He [facility]. Two weeks ago the patient had flu-like symptoms. The patient complains of epigastric abdominal pain described as sharp and moderate without other acute complaints at this time. Related Data Home Medications ?Medication ?Instructions ?Recorded ?Confirmed ?Last Taken ?Type baclofen 10 mg tablet 10 mg PO PRN 05/07/20 05/07/20 Unknown History folic acid 1 mg tablet 1 mg PO DAILY 05/07/20 05/07/20 Unknown History sertraline 25 mg tablet (Zoloft) 25 mg PO DAILY 05/07/20 05/07/20 Unknown History Allergies Allergy/AdvReac Type Severity Reaction Status Date / Time No Known Allergies Allergy Verified 03/22/25 10:19 Review of Systems Review of Systems: All systems reviewed & are unremarkable except as noted in HPI and below PMFSH Past Medical History Medical History Hemorrhoids Alcohol dependence Anxiety Back muscle spasm Anemia Surgical History Surgical History No significant past surgical history Family History Family History Mother Renal cancer Father High blood cholesterol Mother High blood cholesterol Sibling High blood cholesterol Father Heart attack Social History Social History Social History: Mr. Rogers is a 39 y.o. male. He has two children and one stepson. He lives at home with his . He works for [employer]. He reports that he is currently drinking 4 beers (ciders) per day. He notes occasional marijuana and CBD use. Smoking status: Never smoker Alcohol intake: current Drinks per week: 35 Substance use: current Substance use type: marijuana Last use: marijuana 05/04/2020, alcohol 05/06/2020 Occupation/Education: occupation Gender identity (if verbalized by the patient): Male Spiritual care concerns: No Exam Narrative: GENERAL: Well-developed, well-nourished, appears somewhat intoxicated HEAD: Normocephalic, atraumatic. EYES: PERRLA and EOMI. ENT: Nares clear, no rhinorrhea or epistaxis. Mucous membranes moist. Oropharynx without tonsillar hypertrophy exudate or other lesions. CHEST: Clear to auscultation. No respiratory distress. No wheezes rales or rhonchi HEART: Regular rate and rhythm. No murmur heard. Normal peripheral pulses. ABDOMEN: Soft, tender to palpation in the epigastrium without rebound or guarding, nondistended, normal active bowel sounds. EXTREMITIES: Normal range of motion. No edema. SKIN: Warm, dry, no rash. NEURO: Alert and oriented x3. No focal deficit. Moving all 4 limbs spontaneously. No noted ataxia PSYCH: Normal mood and affect. Course Course Emergency Course: 16:35 - CBC unremarkable. Chemistries demonstrate elevated lactic acid of 2.1 an AST of 60. CK 1070. Serum alcohol level of 380. Salicylates, acetaminophen and urine drug screen negative. CT head unremarkable. CT abdomen pelvis demonstrates possible mild duodenitis but is otherwise unremarkable. Chest x-ray not concerning for acute cardiopulmonary process. I suspect the patient's altered mental status is due to alcohol intoxication. I suspect he has been hiding alcohol abuse from his family. After observation, the patient became more clinically sober. A sober family member is to pick him up. Will discharge. All questions were answered to the patient's satisfaction. Vital Signs Vital signs: Vital Signs Temperature 98.4 F 03/22/25 11:53 Pulse Rate 109 H 03/22/25 11:53 Respiratory Rate 20 03/22/25 11:53 Blood Pressure 133/97 H 03/22/25 11:53 Pulse Oximetry 96 03/22/25 11:53 Temperature 98.4 F 03/22/25 11:53 Pulse Rate 108 H 03/22/25 14:15 Respiratory Rate 24 H 03/22/25 14:15 Blood Pressure 120/63 03/22/25 14:01 Pulse Oximetry 100 03/22/25 12:45 Oxygen Delivery Room Air 03/22/25 12:14 MDM - Altered Mental Status MDM Narrative Medical decision making narrative: Plan: Labs, imaging, IV fluids, IV thiamine, reassess Differential Diagnosis Differential diagnosis: Likely alcoholic intoxication, altered mental status, hypoglycemia, hyponatremia and other (Intracranial hemorrhage, encephalitis, metabolic abnormality, Wernicke's encephalopathy, other) Lab Data 03/22/25 12:09 03/22/25 12:09 Labs: Lab Results 03/22/25 03/22/25 03/22/25 Range/Units 12:09 12:24 13:05 WBC 8.0 (4.5-10.0) K/mm3 RBC 5.00 (4.6-6.20) M/mm3 Hgb 14.8 D (14.0-18.0) g/dL Hct 44.7 (42.0-52.0) % MCV 89.4 (80-100) fl MCH 29.6 (26-34) pg MCHC 33.1 (32-36) g/dl RDW 13.6 (11.5-14.5) % Plt Count 224 (150-375) k/mm3 MPV 8.9 (7.4-10.4) fl Immature Gran % (Auto) 0.4 (0-0.5) % Neut % (Auto) 72.6 (45.5-73.1) % Lymph % (Auto) 19.7 (18.3-44.2) % [place] % (Auto) 6.9 (2.6-8.5) % Eos % (Auto) 0.0 (0-4.4) % Baso % (Auto) 0.4 (0.2-1.2) % Lymph # (Auto) 1.58 (0.9-3.2) K/mm3 [place] # (Auto) 0.6 (0.1-0.6) K/mm3 Eos # (Auto) 0.0 (0-0.3) K/mm3 Baso # (Auto) 0.0 (0.0-0.1) K/mm3 Abs Immat Gran (auto) 0.03 (0.00-0.031) K/mm3 Absolute Neuts (auto) 5.8 (1.3-6.7) K/mm3 Absolute Nucleated RBC 0.000 (0.0-0.012) K/mm3 Nucleated RBC % 0.0 (0.0-0.2) % Sodium 144 (137-145) mmol/L Potassium 4.3 (3.4-5.0) mmol/L Chloride 105 (98-107) mmol/L Carbon Dioxide 25 (22-30) mmol/L Anion Gap 14 H (4-12) mmol/L BUN 6 L (9-20) mg/dL Creatinine 0.77 (0.7-1.3) mg/dL Estim Creat Clear Calc Not Reportable Estimated GFR > 60 (59 - ) Glucose 126 H (65-110) mg/dL POC Capillary Glucose 139 H (65-105) mg/dl Lactic Acid 2.1 H (0.7-2.0) mmol/L Calcium 8.8 (8.4-10.2) mg/dL Total Bilirubin 0.5 (0.2-1.3) mg/dL AST 60 H (17-59) U/L ALT 27 (6-50) U/L Alkaline Phosphatase 60 (38-126) U/L Ammonia < 9 L (9-30) umol/L Total Creatine Kinase 1070 H (55-170) U/L Troponin I < 0.012 (0.000-0.034) ng/mL Total Protein 8.4 H (6.3-8.2) g/dL Albumin 4.9 (3.5-5.1) g/dL TSH 0.530 (0.465-4.680) uIU/mL Urine Color Yellow (Yellow) Urine Appearance Clear (Clear) Urine pH 6.5 (5.0-9.0) Ur Specific [place] 1.009 (1.001-1.035) Urine Protein 1+ H (Negative) mg/dL Urine Glucose (UA) Negative (Negative) mg/dL Urine Ketones Negative (Negative) mg/dL Ur Blood (Man) 2+ H (Negative) Urine Nitrate Negative (Negative) Urine Bilirubin Negative (Negative) Urine Urobilinogen 0.2 (<2.0) mg/dL Leukocyte Esterase Rfl Negative (Negative) MONIQUE/UL Urine RBC 0-2 (0-2) /hpf Urine WBC 0-5 (0-3) /hpf Ur Squamous Epith Cells None seen (Few) /hpf Urine Bacteria None seen /hpf Urine Casts 0-2 Salicylates < 1.0 L (2-20) mg/dL Urine Opiates Screen Negative (Negative) Urine Methadone Screen Negative (Negative) Acetaminophen < 10 L (10-30) ug/mL Ur Barbiturates Screen Negative (Negative) Ur Phencyclidine Scrn Negative (Negative) Ur Amphetamine Screen Negative (Negative) U Benzodiazepines Scrn Negative (Negative) Urine Cocaine Screen Negative (Negative) U Cannabinoids Screen Negative (Negative) Ethyl Alcohol 380 H* (<10) mg/dL ECG Data EKG #1: Attestation: I personally reviewed and interpreted this ECG as follows: ECG completion date: 03/22/25 ECG completion time: 12:18 Prior ECG tracings: not available for review Interpretation: Sinus rhythm, rate 83, normal axis, no ST segment elevations or T-wave inversions concerning for ischemia, normal intervals with QTC of 433 Discharge Plan Discharge Clinical Impression: Alcohol abuse Alcohol intoxication Qualifiers: Complication of substance-induced condition: uncomplicated Qualified Code(s): F10.920 - Alcohol use, unspecified with intoxication, uncomplicated Patient Disposition: Home Condition: Stable Instructions: Antibiotic Form, Abuse of Alcohol (ED) Additional Instructions: You were seen in the emergency department. Your blood alcohol level was [address] scan of the head was not concerning for mass or bleeding. A CT scan of the abdomen was not concerning for infection or mass though did have some irritation at the small bowel. Your liver and kidney function tests are within normal limits. I recommend avoiding future alcohol use and follow-up with a primary care doctor. If you develop weakness/numbness, persistent vomiting, loss of consciousness, or if you have other emergent concerns for life, limb, or eyesight, return to the emergency department. Patient Language: Chilean Prescriptions: New ondansetron 4 mg tablet,disintegrating 4 mg PO Q8H PRN (Reason: nausea and vomiting) Qty: 12 0RF No Action sertraline [Zoloft] 25 mg tablet 25 mg PO DAILY baclofen 10 mg tablet 10 mg PO PRN folic acid 1 mg tablet 1 mg PO DAILY Follow-up/Referrals: [facility] [Primary Care Provider, Medical] - 2 Weeks Time of Disposition: 16:39
[2025-03-22 12:56] LABS: Hematocrit 44.7 % (42.0-52.0); Hemoglobin 14.8 g/dL (14.0-18.0); Immature Granulocyte Percent A 0.4 % (0-0.5); Lymphocytes Absolute Auto 1.58 K/mm3 (0.9-3.2); Mean Corpuscular HGB Conc 33.1 g/dl (32-36); Mean Corpuscular Hemoglobin 29.6 pg (26-34); Mean Corpuscular Volume 89.4 fl (80-100); Nucleated Red Blood Cells Absolute Auto 0.000 K/mm3 (0.0-0.012); Nucleated Red Blood Cells Perc 0.0 % (0.0-0.2); Platelet Count Result 224 k/mm3 (150-375); Red Blood Count 5.00 M/mm3 (4.6-6.20); White Blood Count 8.0 K/mm3 (4.5-10.0)
[2025-03-22 13:07] LABS: Alanine Aminotransferase 27 U/L (6-50); Albumin Level 4.9 g/dL (3.5-5.1); Alkaline Phosphatase 60 U/L (38-126); Anion Gap 14 mmol/L (4-12); Aspartate Amino Transferase 60 U/L (17-59); Bilirubin,Total 0.5 mg/dL (0.2-1.3); Blood Urea Nitrogen 6 mg/dL (9-20); Calcium 8.8 mg/dL (8.4-10.2); Carbon Dioxide 25 mmol/L (22-30); Chloride 105 mmol/L (98-107); Creatine Kinase 1070 U/L (55-170); Estimated Glomerular Filt Rate > 60; Glucose 126 mg/dL (65-110); Potassium 4.3 mmol/L (3.4-5.0); Sodium 144 mmol/L (137-145); Total Protein 8.4 g/dL (6.3-8.2)
[2025-03-22 13:15] LABS: Add Urine Microscopic? YES; Appearance Urine Clear (Clear); Glucose Urine UA Negative (Negative); Leukocyte Esterase Ur Negative LEU/UL (Negative); Nitrate Urine Negative (Negative); Non Pathogenic Casts 0-2; Specific Grav Ur 1.009 (1.001-1.035)
[2025-03-22 13:20] LABS: Troponin I < 0.012 ng/mL (0.000-0.034)
[2025-03-22 13:39] LABS: Thyroid Stimulating Hormone 0.530 uIU/mL (0.465-4.680)
[2025-03-22 13:43] LABS: Cannabinoid Screen Urine Negative (Negative)
[2025-03-22] MEDS: PROCHLORPERAZINE EDISYLATE 10 MG/2 ML VIAL IV PUSH (13:48)
--- OUTSIDE RECORDS SUMMARY | 2025-03-22 13:51 | XMS_ITS | Clinical Summary ---
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
--- OUTSIDE RECORDS SUMMARY | 2025-03-22 13:51 | XMS_ITS | Encounter Summary ---
Author Organization [facility] Address [address] [place] [address] Care Team Providers Care Spotter Driver Name Role Phone Anup Cardona DO Primary Care Provider + Encounter Details Date Type Department Care Team (Late st Contact Info) Description 05/29/2022 MyChart Message Enc [facility] Family and Sports Medicine - [place] [address] [place] [address] Jaquelin Giron, PHARMACY TECHNICIAN [facility] [address] [place] [address] Paxlov[employer] Social History Tobacco Use Types Packs/Day Years Used Date Smoking Tobacco: Never Smokeless Tobacco: Former Chew Alcohol Use Standard Drinks/Week Comments Not Currently 16.7 (1 standard dri nk = 0.6 oz pure alcohol) states he has been drinking heavily again since last summer and especially over the last 3 weeks PHQ-2 Answer Date Recorded PHQ-2 Score - If the patient scores above 3, please move on to questions 3-9 2 04/03/2021 Sex and Gender Information Value Date Recorded Sex Assigned at Not on file Legal Sex Male 8:07 AM CDT Gender Identity Not on file Sexual Orientation Not on file 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 Answer Date of Assessment Author Status No 07/29/2020 9:55 PM MARQUETRY WORKER Activ e * Do you have serious difficulty walking or climbing stairs? Answer Date of Assessment Author Status No 07/29/2020 9:55 PM Moni Lu RN Active * Do you have difficulty dressing or bathing? Answer Date of Assessment Author Status No 07/29/2020 9:55 PM Moni Lu RN Active * Because of a physical, mental, or emotional condition, do you have difficulty doing errands alone such as visiting a doctor's office or shopping? Answer Date of Assessment Author Status No 07/29/2020 9:55 PM Moni Lu RN Active documented as of this encounter Mental Status * Because of a physical, mental, or emotional condition, do you have serious difficulty concentrating, remembering, or making decisions? Answer Entry Date Author Status No 07/29/2020 9:55 PM Moni Lu RN Active documented in this encounter Plan of Treatment Not on file documented as of this encounter Goals Goal Patient Goal Type Associated Problems Recent Progress Patient-Stated? Author Safety - demonstrates understanding of home safety measures General No Tiffanie Braun RN documented as of this encounter Visit Diagnoses Not on filedocumented in this encounter Additional Health Concerns Assessment Noted Time PHQ-9 Depression Total Score: 11 021 8:56 AM CDT documented as of this encounter Care Teams Spotter Driver Relationship Specialty Start Date End Date Anup Cardona DO [address] [place] [id number] PCP - General FAMILY PRACTICE 02/02/20 documented as of this encounter
--- OUTSIDE RECORDS SUMMARY | 2025-03-22 13:51 | XMS_ITS | Encounter Summary ---
Author Organization [facility] Address [address] [place] [address] Phone Care Team Providers Care Legal Internship Name Role Phone HussainxuanradhaLarissa verduzcochary Rand ROSENBERG Primary Care Provider + Encounter Details Date Type Department Care Team (Late st Contact Info) Description 06/14/2020 Telephone [facility] [address] [place] [address] Jonah Cruz DO [address] [place] [address] Social History Tobacco Use Types Packs/Day Years Used Date Smoking Tobacco: Never Smokeless Tobacco: Never Alcohol Use Standard Drinks/Week Comments Yes 4 (1 standard drink = 0.6 oz pur e alcohol) PHQ-2 Answer Date Recorded Total Score - Questions 1-9 0 12/2019 Sex and Gender Information Value Date Recorded Sex Assigned at Not on file 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 RGLASS MACHINE OPERATOR documented in this encounter Plan of Treatment Not on file documented as of this encounter Visit Diagnoses Not on filedocumented in this encounter Additional Health Concerns Assessment Noted Time PHQ-9 Depression Total Score: 0 05/13/20 20 3:10 PM FIBERGLASS MACHINE OPERATOR documented as of this encounter Care Teams Legal Internship Relationship Specialty Start Date End Date Anup Cardona DO [address] [place] [id number] PCP - General Family Medicine 05/24/19 documented as of this encounter
--- OUTSIDE RECORDS SUMMARY | 2025-03-22 13:51 | XMS_ITS | Encounter Summary ---
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 Answer Date of Assessment Author Status No 07/29/2020 9:55 PM TOMATO PASTE MAKER Activ e * Do you have serious [...] documented as of this encounter Care Teams Analyst Business Analysis Relationship Specialty Start Date End Date Anup Cardona DO [address] [place] [id number] PCP - General FAMILY PRACTICE 02/02/20 documented as of this encounter
--- OUTSIDE RECORDS SUMMARY | 2025-03-22 13:51 | XMS_ITS | Encounter Summary ---
Author Organization [facility] Address [address] [place] [address] Phone Care Team Providers Care Conductor Pullman Name Role Phone HussainxuanradhaLarissa verduzcochamaksim Gordillo DO Primary Care Provider + Encounter Details Date Type Department Care Team (Late st Contact Info) Description 05/13/2021 Telephone [facility] [address] [place] [address] Jonah Cruz DO [address] [place] [address] Social History Tobacco Use Types Packs/Day Years Used Date Smoking Tobacco: Never Smokeless Tobacco: Never Alcohol Use Standard Drinks/Week Comments Yes 4 (1 standard drink = 0.6 oz pur e alcohol) PHQ-2 Answer Date Recorded Total Score - Questions 1-9 0 11/06 Sex and Gender Information Value Date Recorded Sex Assigned at Not on file Legal Sex Male 2:43 PM 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 Gender Identity Not on file Sexual Orientation Not on file documented as of this encounter Miscellaneous Notes * Telephone Encounter - Maisha Jeff - 05/13/2021 2:21 PM CST PT HAD OFFICE VIST TODAY, CALLED PT, LEFT MESSAGE ABOUT MISSING APPT, LETTER SENT TIC 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 documented in this encounter Plan of Treatment Not on file documented as of this encounter Visit Diagnoses Not on filedocumented in this encounter Additional Health Concerns Assessment Noted Time PHQ-9 Depression Total Score: 0 12/03/19 21 1:06 PM CDT documented as of this encounter Care Teams Conductor Pullman Relationship Specialty Start Date End Date Anup Cardona DO [address] [place] [id number] PCP - General Family Medicine 05/24/19 documented as of this encounter
--- OUTSIDE RECORDS SUMMARY | 2025-03-22 13:51 | XMS_ITS | Encounter Summary ---
Author Organization [facility] Address [address] [place] [address] Phone Care Team Providers Care Cardiac Monitor Technician Name Role Phone Anup Cardona Rand ROSENBERG Primary Care Provider + Encounter Details Date Type Department Care Team (Late st Contact Info) Description 10/29/2020 Telephone [facility] [address] [place] [address] Jonah Cruz DO [address] [place] [address] Social History Tobacco Use Types Packs/Day Years Used Date Smoking Tobacco: Never Smokeless Tobacco: Never Alcohol Use Standard Drinks/Week Comments Yes 4 (1 standard drink = 0.6 oz pur e alcohol) PHQ-2 Answer Date Recorded Total Score - Questions 1-9 0 10/05 Sex and Gender Information Value Date Recorded Sex Assigned at Not on file 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 The referral on the same day that you put in so I wanted to make sure that he still needed to go up there. I have to resend the paperwork to [facility] hepatology and saw that the referral was . Please advise. documented in this encounter Plan of Treatment Not on file documented as of this encounter Visit Diagnoses Not on filedocumented in this encounter Additional Health Concerns Assessment Noted Time PHQ-9 Depression Total Score: 0 10/22/19 21 1:28 PM CDT documented as of this encounter Care Teams Cardiac Monitor Technician Relationship Specialty Start Date End Date Anup Cardona DO [address] [place] [phone] PCP - General Family Medicine 05/24/19 documented as of this encounter
--- OUTSIDE RECORDS SUMMARY | 2025-03-22 13:51 | XMS_ITS | Clinical Summary ---
Author Organization [facility] Address [address] [place] [address] Care Team Providers Care Benefits Manager Name Role Phone Anup Cardona Primary Care Provider + Allergies No known active allergies Medications folic acid 1 MG tablet Take 1 mg by mouth daily. 06/14/2019 Active ferrous gluconate 324 (38 FE) MG tablet Take 1 tablet (324 mg total) by mouth daily. 30 tablet 08/01/2020 Active vitamin C 500 MG tablet Take 500 mg by mouth. Active niacin 250 MG tablet Take 250 mg by mouth nightly at bedtime. Active busPIRone 10 MG tabletIndicatio ns:Anxiety Take 1 tablet (10 mg total) by mouth 3 (three) times daily. 270 tablet 01/07/2021 Active sertraline 50 MG tabletIndicatio ns:Anxiety Take 1 tablet (50 mg total) by mouth daily. 90 tablet 01/07/2021 Active azelastine 0.1 % nasal spray SPRAY 2 SPRAYS IN EACH NOSTRIL TWO TIMES A DAY 03/06/2021 Active fluticasone propionate 50 MCG/ACT nasal spray SPRAY 1 SPRAY IN EACH NOSTRIL ONCE A DAY 03/06/2021 Active hydrOXYzine (ATARAX) 25 MG tabletIndicatio ns:Anxiety Take 1 tablet (25 mg total) by mouth 3 (three) times daily as needed for Anxiety. 30 tablet 05/12/2022 Active baclofen (LIORESAL) 10 MG tabletIndicatio ns:Spasm of thoracic back muscle Take 1 tablet (10 mg total) by mouth 2 (two) times daily. 60 tablet 05/12/2022 Active Active Problems Problem Noted Date Diagnosed Date Liver lesion 08/07/2020 Anxiety 08/07/2020 Alcohol dependence in remission 08/02/2020 Rectal bleeding 08/01/2020 Anemia 07/29/2020 Acute blood loss anemia 04/29/2019 Iron (Fe) deficiency anemia 04/29/2019 Vitamin D deficiency 04/28/2019 DVT, lower extremity, proximal, acute, right Bleeding external hemorrhoids 04/23/2019 History of alcohol use 04/23/2019 Fatty liver 04/23/2019 Anemia, unspecified type 04/23/2019 Candidal esophagitis 04/23/2019 GI hemorrhage 04/17/2019 Chronic cough 04/17/2019 Leg cramp 04/17/2019 RLS (restless legs syndrome) 04/17/2019 LEAH (obstructive sleep apnea) 06/08/2018 Hearing loss 12/24/2017 Insomnia 12/24/2017 Low vitamin D level 12/24/2017 Obesity 12/24/2017 Family history of cardiovascular disease Immunizations Immunization Administration Dates Next Due Anthrax Vaccine 10/21/2012 Dtap (Generic) 08/05/2020 H1N1 Injectable 2009 Influenza 06/20/2009 Influenza Adult (Generic) 08/05/2020 Pneumococcal (Generic) 08/05/2020 Small Pox 12/25/2005 Typhoid Vi Polysaccharide Vacc 25 Mcg/0.5Ml Im S oln 01/13/2007 Yellow Fever Vaccine 03/23/2008 Family History Medical History Relation Comments Cancer Mother Cancer Other Heart Disease Other Hypertension Other Kidney Disease Other Relation Status Comments Mother Other Social History Tobacco Use Types Packs/Day Years [...] 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 Not on file Not on file Last Filed Vital Signs Vital Sign Reading Time Taken Comments Blood Pressure 121/81 04/03/2021 8:49 AM CDT Pulse 97 04/03/2021 8:39 AM CDT Temperature 36.2 C (97.2 F) 04/03/2021 8:39 AM CDT Respiratory Rate 20 04/03/2021 8:39 AM CDT Oxygen Saturation 99% 04/03/2021 8:39 AM CDT Inhaled Oxygen Concentration - - Weight 94.8 kg (209 lb) 04/03/2021 8:39 AM CDT Height 177.8 cm (5' 10) 04/03/2021 8:39 AM CDT Body Mass Index 29.99 04/03/2021 8:39 AM CDT Plan of Treatment Health Maintenance Due Date Last Done Comments Annual Physical 1983 Hepatitis B Vaccines (1 of 3 - 19+ 3-dose series) 1999 Pneumococcal Vaccine: Pediatrics (0 to 5 Years) and At-Risk Patients (6 to 49 Years) (1 of 2 - PCV) 1999 08/05/2020 HPV Vaccines (1 - 3-dose SCD M series) 2007 COVID-19 Vaccine (1 - 2023-2 5 season) 2025 Influenza Adult (#1) 2025 08/05/2020, 06/20/2009 DTaP, Tdap and Td Vaccines ( 2 - Tdap) 08/05/2030 08/05/2020 Hepatitis C Completed 04/21/2019 Meningococcal B Vaccine Aged Out No l onger eligible based on patient's age to complete this topic Meningococcal Vaccine Aged Out No murali clifton eligible based on patient's age to complete this topic RSV Immunizations Under 20 Months Aged Out No longer eligible b ased on patient's age to complete this topic Goals Goal Patient Goal Type Associated Problems Recent Progress Patient-Stated? 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 Procedure Name Priority Date/Time Associated Diagnosis Comments HEPATITIS PANEL,ACUTE Routine 04/21/2019 1:21 PM POTATO SEED CUTTER Anemia, unspecified type Fatty liver from Last 3 Months or Most Recently Relevant to Health Maintenance Results * HEPATITIS PANEL,ACUTE (04/21/2019 1:21 PM POTATO SEED CUTTER) HEPATITIS A IGM Negative Negative [facility] 1 HEPATITIS B SURFACE AG Negative Negative [facility] 1 HEP B CORE AB COMMENT Negative Negative [facility] 1 HEPATITIS C AB <0.1 0.0 - 0.9 s/co ratio [facility] 1 Comment: Negative: < 0.8 Indeterminate: 0.8 - 0.9 Positive: > 0.9 The CDC recommends that a positive HCV antibody result be followed up with a HCV Nucleic Acid Amplification test (580370). 04/21/2019 1:21 PM POTATO SEED CUTTER 04/21/2019 Narrative [facility] - 04/22/2019 8:11 AM POTATO SEED CUTTER Performed at: 01 - [facility] [address] [id number] Post Secondary Professional: Rick Parrish PhD, Phone: [phone] Anup Cardona DO LABORATORY Final Re sult [facility] [address] [place] [address] [facility] 1 from Last 3 Months or Most Recently Relevant to Health Maintenance Advance Directives * Full Code (Latest Code Status on File) Date Activated Date Inactivated Comments 07/29/2020 8:36 PM 08/01/2020 2:55 PM * Full Code Date Activated Date Inactivated Comments 04/28/2019 6:48 PM 04/29/2019 9:49 PM * Full Code Date Activated Date Inactivated Comments 04/17/2019 4:09 PM 04/19/2019 6:03 PM Care Teams Benefits Manager Relationship Specialty Start Date End Date Anup Cardona DO [address] [place] [id number] PCP - General FAMILY PRACTICE 02/02/20
--- OUTSIDE RECORDS SUMMARY | 2025-03-22 13:51 | XMS_ITS | Clinical Summary ---
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
--- OUTSIDE RECORDS SUMMARY | 2025-03-22 13:51 | XMS_ITS | Clinical Summary ---
Author Organization [facility] Care Address [address] [place] [phone] Phone Care Team Providers Care Erp Manager Name Role Phone Daria Dee MD Primary Care Provider [phone] Allergies No known active allergies Medications thiamine [...] Hepatitis B Screening Completed 08/01/2004 Care Teams Erp Manager Relationship Specialty Start Date End Date Daria Dee MD [address] [place] [address] PCP - General 12/23/21
--- OUTSIDE RECORDS SUMMARY | 2025-03-22 13:51 | XMS_ITS | Encounter Summary ---
Author Organization [facility] Address [address] [place] [id number] Care Team Providers Care Transition Rn Name Role Phone Anup Cardona DO Primary Care Provider + Encounter Details Date Type Department Care Team (Late st Contact Info) Description 04/26/2021 MyChart Message Enc [facility] Family & Internal Medicine 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
--- NOTE | 2025-03-22 15:38 | PC.NURSE ---
Pt removed monitor. Frequently reminded to stay in bed.
--- NOTE | 2025-03-22 16:00 | PC.NURSE ---
Spoke with Carrie and informed her that pt will need a ride home. She will come to hospital after getting off work at 1700.
== END 2025-03-22 16:58 | disposition home or self-care (01) ==
PROVIDERS: Emergency Provider Preventive Medicine Aerospace Medicine
DX: F10.229 Alcohol dependence with intoxication, unspecified (principal); Y90.8 Blood alcohol level of 240 mg/100 ml or more; F41.9 Anxiety disorder, unspecified; Z86.2 Personal history of diseases of the blood and blood-forming organs and certain disorders involving the immune mechanism; Z79.899 Other long term (current) drug therapy
CPT/HCPCS: 36415; 70450; 71046; 74177; 80053; 80143; 80179; 80307; 81001; 82077; 82140; 82550; 82948; 83605; 84443; 84484; 85025; 93005; 96361; 96374; 96375; 99284; J0780; J3411; J7030; Q9967